=== PATIENT | female | born 1975 | race Hispanic/Latino ===

== ENCOUNTER 2020-02-04 17:48 | Emergency (ER) | payer BC ==
[~2020-02-04] VITALS: Ht 157.5 cm; Wt 72.6 kg
[2020-02-04] MEDS ORDERED: VITAMIN D350 MCG PO (18:05)
[2020-02-04] MEDS ORDERED: CETIRIZINE HCL10 MG PO (18:05)
[2020-02-04] MEDS ORDERED: IBUPROFEN800 MG PO (18:06)
== END 2020-02-04 22:28 | disposition home or self-care (01) ==
LOC: ED 17:48
DX: R51 Headache (principal); Z79.899 Other long term (current) drug therapy
CPT/HCPCS: 62270; 70450; 82945; 84157; 85032; 89051; 99284-25; J1200; J2765; J7030

== ENCOUNTER 2021-02-26 18:27 | Emergency (ER) | payer OTHER, BC ==
[~2021-02-26] VITALS: Ht 157.5 cm; Wt 72.8 kg
[~2021-02-26 18:27] MED LIST: CETIRIZINE HCL10 MG PO; IBUPROFEN800 MG PO; VITAMIN D350 MCG PO
[2021-02-26] MEDS ORDERED: VALIUM10 MG PO (21:19)
== END 2021-02-26 21:36 | disposition home or self-care (01) ==
LOC: ED 18:27
DX: S39.012A Strain of muscle, fascia and tendon of lower back, initial encounter (principal); X50.0XXA Overexertion from strenuous movement or load, initial encounter; Y99.0 Civilian activity done for income or pay; Z79.899 Other long term (current) drug therapy
CPT/HCPCS: 96372; 99283; J1885; J2270; J3360

== ENCOUNTER 2022-04-26 05:45 | Day surgery (SDC) | payer BC ==
[~2022-04-26] VITALS: Ht 157.5 cm; Wt 71.8 kg
[~2022-04-26 05:45] MED LIST changes: +CINNAMON500 MG PO; +FISH OIL 1,0001 EAC6 PO; +TURMERIC500 M3 PO; +VALIUM10 MG PO; +VIT C-ROSE HIP500 MG PO
--- NOTE | 2022-04-26 06:56 | NUR ---
denies any needs. iv patent.
--- NOTE | 2022-04-26 07:58 | NUR ---
PT ALERT, SIG OTHER IN SUPPORT.PT SEEMS ANXIOUS, SAID SHE HAS HAD PREVIOUS EGD. LEGS RESTLESS, SLIGHT LANGUAGE BARRIER, GAVE ENCOURAGEMENT, SIG OTHER WILL REMAIN FOR DC. SHARED PTS' ANXIOUS MOVEMENTS WITH ALLEN SIERRA. SHE WILL FOLLOW UP WITH LETI MERCADO
--- NOTE | 2022-04-26 08:06 | NUR ---
04/26/22 0806 Dulce Garrison 0859-PT TO PACU IN SUPINE POSITION. EYES CLOSED DOES NOT RESPOND TO VERBAL OR TACTILE STIMULI. BREATHING EASY AND UNALBORED. SPO2 >95% ON 8 L O2 VIA SIMPLE MASK WITH ORAL AIRWAY IN PLACE. 0802-PT RESPONDS TO TACTILE STIMULI AND OPENS EYES. ORAL AIRWAY REMOVED. BREATHING EASY AND UNLABORED. SPO2 >95% ON 6 L O2 VIA SIMPLE MASK. 0806-PT HOB ELEVATED. PT ENCOURAGED TO TAKE DEEP BREATHS. RETURN DEMONSTRATION OBSERVED. PT OPENS EYES INTERMITTANTLY ON HER OWN. BREATHING EASY AND UNLABORED. SPO2 >95% ON 6 L O2 VIA SIMPLE MASK.
--- NOTE | 2022-04-26 08:48 | NUR ---
PT AMBULATED TO BATHROOM WITH MINIMAL ASSIST, SHE WAS ABLE TO VOID, PT AMBULATED BACK TO ROOM, WARM BLANKETS GIVEN, CALL LIGHT WITHIN REACH. AT BEDSIDE.
--- NOTE | 2022-04-27 06:45 | OR ---
[facility] [address], [place] [address] Signed DATE OF OPERATION: 04/26/2022 SURGEON: Tom Jiang MD PREOPERATIVE DIAGNOSES: 1. Midsternal esophageal dysphagia. 2. Laparoscopic Francesca fundoplication in August 2018. 3. Question diverticulum at GE junction on recent barium swallow. 4. History of mild Schatzki's ring status post dilation. 5. Remote history of Cornelius's esophagus. POSTOPERATIVE DIAGNOSES: 1. Tiny distal esophageal diverticulum above GE junction. 2. Short floppy intact Francesca fundoplication. 3. No visible Cornelius's esophagus. 4. Minimal distal gastritis. PROCEDURE: EGD with CLOtest and biopsies of the antrum, GE junction and dilation to 54-Russian with Tanzanian dilator. ESTIMATED BLOOD LOSS: None. INDICATIONS: Marifer is a 46-year-old female, who has extensive history starting as far back as 2000 regarding her esophagus and Francesca fundoplication in 2019. Please see my two previous office notes one on December 19, 2021, the other on January 31, 2022 for those significant details. She is now having some sense of midsternal esophageal dysphagia. We sent her for a barium swallow at [facility] in [place], [place]. There is no esophageal dysmotility, no mucosal abnormality and no filling defect. She has no obvious stenosis. She has a very small diverticulum right about the level of GE junction. She returns to the office and wanted to undergo repeat upper endoscopy with impaired dilation. I reviewed with her all her previous records as well as her recent studies. I gave her a pamphlet on upper endoscopy. She is very familiar with that test. There is risk including, but not limited to gas bloating, crampy abdominal pain, bleeding, perforation requiring surgery, and missed diagnosis. She had expressed understanding wished to proceed. In these situations with dilation, we always have monitored anesthesia care for airway control and protection. She had expressed understanding wished to proceed. Electronically Signed By: TOM JIANG MD 04/27/22 0645 PATIENT NAME: MARIFER TOMAS OPERATIVE REPORT DATE OF : 73 REPORT #: [id number] PHYSICIAN: TOM JIANG MD PCP: MOODY HAYES DO REPORT IS CONFIDENTIAL AND NOT TO BE RELEASED WITHOUT AUTHORIZATION [facility] [address] [place] [id number] Signed PROCEDURE NOTE: Marifer was taken into our endoscopy suite and placed in the supine semi-recumbent position. She was placed under general endotracheal tube anesthesia per our nurse demolition specialist. Her lips were well lubricated. The adult gastroscope was introduced and advanced down the esophagus under direct visualization of camera without difficulty. On our initial pass down the esophagus, we did not see the tiny diverticulum just above her GE junction. We passed through her GE junction and it was very unremarkable. There was no Cornelius's mucosa. There was a little or no disruption to the Z-line. We did not have any sense of a stricture. We passed through a very short floppy intact Francesca fundoplication into the stomach. In the distal stomach, she had very minimal erythema. We went out into the duodenum and found to be quite unremarkable. We can see the ampulla of Vater off the side. It looked quite healthy. Her pyloric channel was healthy. We went ahead and took a biopsy out of the antrum for pathologic review as well as CLOtest. Upon retroflexion of scope once again, we can see that she has an intact Francesca fundoplication. No evidence of any recurrent hiatal hernia. We withdrew the scope back up through the area of her fundoplication. The Z-line is about 38-39 cm from her incisors. Her Francesca fundoplication is 2 or 3 cm at most in length. Again, little or no disruption at the Z-line. No Cornelius's mucosa. On this occasion as we looked around just above her Z-line, she has a very tiny diverticulum off to the side. We took multiple pictures for photodocumentation. I can't imagine that is causing her any significant sense of dysphagia. We then went ahead and passed our wire out into the stomach and withdrew our scope. We used a well lubricated 54-Russian Tanzanian dilator and carefully and slowly pass the dilator over the wire all the way down through the GE junction without resistance. The wire and dilator had been withdrawn. We reintroduced our gastroscope and as we traveled down the esophagus, we saw no breaks whatsoever in the mucosa particularly around the area of fundoplication. The stomach was unremarkable once again. On her way back, we went and took a single biopsy right along the edge of the Z-line for pathologic review. Otherwise, the distal middle and upper esophagus were unremarkable. After this, the gas was suctioned out and the gastroscope removed. Marifer tolerated the procedure quite well. RECOMMENDATIONS: I will see Marifer back in my office in 7 to 14 days to review her results. If she still has a sense of dysphagia, she is going to need advanced testing to include esophageal manometry and 24-hour pH testing. Tom Jiang MD Electronically Signed By: TOM JIANG MD 04/27/22 0645 PATIENT NAME: MARIFER TOMAS OPERATIVE REPORT DATE OF : 73 REPORT #: [id number] PHYSICIAN: TOM JIANG MD PCP: MOODY HAYES DO REPORT IS CONFIDENTIAL AND NOT TO BE RELEASED WITHOUT AUTHORIZATION [address] [place], [place] [address] Signed ALB/MODL /[id number] cc: MD Moody Matias DO Copies: TOM JIANG MD, ARIAN DO ~ Electronically Signed By: TOM JIANG MD 04/27/22 0645 PATIENT NAME: MARIFER TOMAS OPERATIVE REPORT DATE OF : 73 REPORT #: [id number] PHYSICIAN: TOM JIANG MD PCP: MOODY HAYES DO REPORT IS CONFIDENTIAL AND NOT TO BE RELEASED WITHOUT AUTHORIZATION
--- NOTE | 2022-04-28 11:45 | PATH ---
[facility] [address] [place], [place] [address] Signed SPECIMEN(S): A ANTRUM/PYLORUS BIOPSY SPECIMEN(S): B GE JUNCTION BIOPSY SPECIMEN SOURCE: A. ANTRUM/PYLORUS BIOPSY B. GE JUNCTION BIOPSY CLINICAL HISTORY: History of esophageal dysphagia, history of Cornelius's esophagus. FINAL PATHOLOGIC DIAGNOSIS: A. Antrum / pylorus biopsy: - Benign gastric-type mucosa with focal slight chronic inflammation. - Negative for evidence with Helicobacter organisms on immunostained sections. B. Gastroesophageal junction biopsy: - Benign esophageal and gastric-type mucosa with focal slight chronic inflammation. - Negative for specialized intestinal metaplasia or dysplasia. JVR:sherie:C2NR MICROSCOPIC EXAMINATION: Histologic sections of all submitted blocks are examined by light microscopy. These findings, together with the gross examination, support the pathologic diagnosis. A Helicobacter pylori immunostain is performed with appropriate positive and negative controls on block (A1) and is negative for organisms. JVR:sherie GROSS DESCRIPTION: Two specimens are received in two containers, labeled "SG." A. The specimen, labeled "SG, antrum/pylorus biopsy," is received in formalin and consists of one guevara soft tissue fragment that measures 0.6 cm in greatest dimension. The specimen is entirely submitted in cassette (A1). B. The specimen, labeled "SG, GE junction biopsies," is received in formalin and consists of one guevara soft tissue fragment that measures 0.3 cm in greatest dimension. The specimen is entirely submitted in cassette (B1). VB (under the direct supervision of a pathologist) The Gross Description was prepared using a voice recognition system. The report was reviewed for accuracy; however, sound-alike word errors, addition and/or PATIENT NAME: GABRIELA TOMAS PATHOLOGY DATE OF : 73 REPORT #: [id number] PHYSICIAN: GHADAFarmstr PATHOLOGY PCP: THIAGO HAYES DO REPORT IS CONFIDENTIAL AND NOT TO BE RELEASED WITHOUT AUTHORIZATION [facility] [address] [place], [place] [address] Signed deletions may occur. If there is any question about this report, please contact Client Services. ADDITIONAL NOTES: Immunohistochemical and/or in situ hybridization studies were performed on this case with the appropriate positive controls that react as expected. This test was developed and its performance characteristics determined by [facility]. It has not been cleared or approved by the U.S. Food and Drug Administration. The FDA has determined that such clearance or approval is not necessary. This test is used for clinical purposes. It should not be regarded as investigational or for research. [facility] is certified under the Clinical Laboratory Improvement Amendments of 1988 (CLIA) as qualified to perform high complexity clinical laboratory testing. This assay has not been validated for specimens that have been decalcified. PERFORMING LABORATORY: The technical component was performed by [facility], [address] [place] [id number] (CLIA# [id number]). Professional interpretation was performed by [facility] - [facility], [address] [place] [id number] (CLIA#: [id number]). Diagnostician: Jesús Mosqueda MD Pathologist Electronically Signed 04/28/2022 Copies: ~ PATIENT NAME: GABRIELA TOMAS PATHOLOGY DATE OF : 73 REPORT #: [id number] PHYSICIAN: DAISHA TRAMMELL PCP: THIAGO HAYES DO REPORT IS CONFIDENTIAL AND NOT TO BE RELEASED WITHOUT AUTHORIZATION
== END 2022-04-26 09:20 | disposition home or self-care (01) ==
LOC: OPS 05:45 → DS 05:45 → OPS 07:30
PROVIDERS: ATTEND Colon & Rectal Surgery
PROC: 0D758ZZ Dilation of Esophagus, Via Natural or Artificial Opening Endoscopic (ICD-10-PCS; 2022-04-26)
PROC: 0DB68ZX Excision of Stomach, Via Natural or Artificial Opening Endoscopic, Diagnostic (ICD-10-PCS; principal; 2022-04-26 07:30)
DX: K22.5 Diverticulum of esophagus, acquired (principal); R13.10 Dysphagia, unspecified; K29.70 Gastritis, unspecified, without bleeding
CPT/HCPCS: 36415; 87077; J0330; J1100; J1885; J2405; J2704; J7121

== ENCOUNTER 2023-09-05 15:57 | Inpatient (IN) | payer BC ==
[~2023-09-05] VITALS: Ht 157.5 cm; Wt 72.1 kg
[~2023-09-05 15:57] MED LIST changes: +OLMESARTAN MEDOX5 MG PO
[2023-09-05 17:53] LABS: BASOPHILS 0.3 % (0-2); HEMATOCRIT 39.7 % (35.0-50.0); HEMOGLOBIN 13.8 g/dL (12.0-18.0); LYMPHOCYTES 13.8 % (24-44); MCH 31.2 (27-36); MCHC 34.7 g/dl (30-36); MCV 89.8 fl (81-99); NEUTROPHILS 78.9 % (39-80); PLATELET COUNT 252 K/uL (140-440); RBC 4.42 M/ul (4.3-5.7); RDW 13.1 (10.5-15.0)
[2023-09-05 17:55] LABS: BILIRUBIN, URINE NEGATIVE (negative); BLOOD/HGB, URINE NEGATIVE (Negative); KETONE, URINE NEGATIVE (Negative); LEUK ESTERASE, URINE NEGATIVE (negative); NITRITE, URINE NEGATIVE (negative); PH, URINE 7.5 (5-7)
[2023-09-05 18:08] LABS: ALBUMIN 3.9 g/dL (3.4-5.0); ANION GAP 11.5 (7-21); BILIRUBIN, TOTAL 0.6 ng/dL (0.2-1.0); BUN/CREATININE RATIO 22.47 (6.0-28.6); CALCIUM 8.4 mg/dL (8.5-10.1); CREATININE, SERUM 0.89 mg/dL (0.55-1.02); POTASSIUM 3.5 mmol/L (3.5-5.1); PROTEIN, TOTAL 7.8 g/dL (6.4-8.2)
[2023-09-05] MEDS ORDERED: KETOROLAC TROMETHAMINE 30 MG/ML VIAL IV ONE (18:45)
[2023-09-05] MEDS ORDERED: LACTATED RINGER'S 1,000 ML IV SCH ×2 (18:45→22:30)
[2023-09-05] MEDS ORDERED: CEFAZOLIN SODIUM 2 GM/20 ML SYR IV ONE ×2 (20:00→22:30)
[2023-09-05] MEDS ORDERED: FAMOTIDINE 20 MG/ 2 ML VIAL IV ONE (20:00)
[2023-09-05 20:36] VITALS: BP 173/79
[2023-09-05] MEDS ORDERED: DEXTROSE 5% - LACTATED RINGERS 1,000 ML IV SCH (20:45)
[2023-09-05] MEDS ORDERED: HYDROmorphone HCL 1 MG/ML SYR IV PRN (20:45)
[2023-09-05] MEDS ORDERED: ondansetron HCL 4 MG/2 ML VIAL IV PRN ×2 (20:45→22:30)
[2023-09-05] MEDS ORDERED: OXYBUTYNIN CHLOR5 M1 PO (20:47)
--- NOTE | 2023-09-05 21:00 | NUR ---
PT ADMITTED TO ROOM 115 @ 2035 FROM ED. A/O, SELF TRANSFERED FROM STRETCHER AND WENT DIRECTLY TO BATHROOM. BACK TO BED, RA, BOYFRIEND ACCOMPAINED PT TO ROOM. PARTICIPATED IN THE ADMISSION PROCESS. STATES SHE HAS URINARY URGENCY, TAKES A PRN MEDICATION FOR THIS.
[2023-09-05] MEDS ORDERED: HEParin SOD (PORCINE) 5,000 UNIT/0.5 ML SYR SUB-Q SCH (22:20)
[2023-09-05] MEDS ORDERED: LACTATED RINGER'S 1,000 ML IV ONE (22:30)
[2023-09-05] MEDS ORDERED: oxyBUTYnin chloride 5 MG TAB PO PRN (22:30)
[2023-09-05] MEDS ORDERED: MORPHINE SULFATE 10 MG/ML VIAL IV PRN (22:30)
[2023-09-05] MEDS ORDERED: PROCHLORPERAZINE EDISYLATE 10 MG/2 ML VIAL IV PRN (22:30)
[2023-09-05] MEDS ORDERED: LOSARTAN POTASSIUM 50 MG TAB PO SCH (22:30)
--- NOTE | 2023-09-05 22:30 | NUR ---
DR MIDDLETON INTO SEE PT; GALLBLADDER BOOK GIVEN, CZECH, WELL A UPPER SORBIAN VERSION. PT GIVEN BROTH, JELLO; WATER. DOES NOT HAVE A TIME FOR SURGERY, EXPLAINED TO PT. PT STATES UNDERSTANDING. DENIES NEED FOR PAIN MEDICATIONS THIS TIME. HAS BEEN UP TO BATHROOM TO VOID, STEADY ON FEET.
[2023-09-05 22:48] VITALS: BP 151/84
--- NOTE | 2023-09-05 23:46 | NUR ---
PATIENT RESTING IN BED. SCHEDULED MEDICATION ADMINISTERED. ASSESSMENT COMPLETE. ABD TENDER UPON PALPATION, BUT DENIES PAIN. IV FLUSHED WNL. WATER REMOVED FROM BEDSIDE TABLE. PATIENT HAS NO FURTHER NEEDS. CALL LIGHT IN REACH.
[2023-09-06] VITALS (9 sets, daily range): BP systolic 129–145; BP diastolic 68–771
--- NOTE | 2023-09-06 01:13 | NUR ---
PATIENT RESTING IN BED. VS AND I&Os OBTAINED AND RECORDED. NEW BAG IV FLUID INFUSING PER ORDER. PATIENT HAS NO FURTHER NEEDS. CALL LIGHT IN REACH.
--- NOTE | 2023-09-06 02:05 | NUR ---
PATIENT RESTING IN BED WITH EYES CLOSED. RESPIRATIONS EVEN AND UNLABORED. CALL LIGHT IN REACH.
[2023-09-06] MEDS ORDERED: KETOROLAC TROMETHAMINE 30 MG/ML VIAL IV PRN (03:15)
[2023-09-06] MEDS ORDERED: CEFAZOLIN SODIUM 2 GM/20 ML SYR IV SCH ×2 (04:00→06:00)
--- NOTE | 2023-09-06 04:19 | NUR ---
PATIENT RESTING IN BED WITH EYES CLOSED. SCHEDULED ABX INFUSING PER ORDER. CALL LIGHT IN REACH.
[2023-09-06 05:36] LABS: BASOPHILS 0.8 % (0-2); EOSINOPHILS 2.8 % (0-6); HEMATOCRIT 37.8 % (35.0-50.0); HEMOGLOBIN 12.8 g/dL (12.0-18.0); LYMPHOCYTES 34.9 % (24-44); MCH 30.6 (27-36); MCV 90.1 fl (81-99); MONOCYTES 8.9 % (0-12); NEUTROPHILS 52.6 % (39-80); PLATELET COUNT 234 K/uL (140-440); RBC 4.19 M/ul (4.3-5.7); RDW 13.3 (10.5-15.0)
[2023-09-06] MEDS ORDERED: FAMOTIDINE 20 MG/ 2 ML VIAL IV SCH ×2 (06:00→09:00)
[2023-09-06] MEDS ORDERED: HEParin SOD (PORCINE) 5,000 UNIT/0.5 ML SYR SUB-Q SCH (06:00)
[2023-09-06 06:09] LABS: ALBUMIN 3.2 g/dL (3.4-5.0); ALBUMIN/GLOBULIN RATIO 0.89 (1.1-2.4); ANION GAP 11.6 (7-21); BILIRUBIN, TOTAL 0.8 ng/dL (0.2-1.0); BUN/CREATININE RATIO 15.38 (6.0-28.6); CALCIUM 8.1 mg/dL (8.5-10.1); CREATININE, SERUM 0.65 mg/dL (0.55-1.02); POTASSIUM 3.6 mmol/L (3.5-5.1); PROTEIN, TOTAL 6.8 g/dL (6.4-8.2)
--- NOTE | 2023-09-06 06:14 | NUR ---
PATIENT RESTING IN BED. AWAKENS EASILY. VS AND I&Os OBTAINED AND RECORDED. PRE-SURGERY WIPE DOWN COMPLETE. NEW GOWN AND LINENS PROVIDED. ASSESSMENT COMPLETE. PATIENT DENIES PAIN. ABD TENDER UPON PALPATION. PATIENT HAS NO FURTHER NEEDS. CALL LIGHT IN REACH.
--- NOTE | 2023-09-06 07:11 | NUR ---
GOT REPORT FROM MANUFACTURING MAINTENANCE TECHNICIAN NURSE.
--- NOTE | 2023-09-06 08:05 | NUR ---
Provided Pt with extra pillow. Call light left in reach. No other needs expressed by Pt.
[2023-09-06] MEDS ORDERED: LIDOCAINE HCL 1% 30 ML SDV ONE (08:23)
[2023-09-06] MEDS ORDERED: ROCURONIUM BROMIDE 50 MG/5 ML SYR ONE (08:23)
[2023-09-06] MEDS ORDERED: propofoL 200 MG/20 ML VIAL ONE (08:23)
[2023-09-06] MEDS ORDERED: KETOROLAC TROMETHAMINE 30 MG/ML VIAL ONE (08:26)
[2023-09-06] MEDS ORDERED: ondansetron HCL 4 MG/2 ML VIAL ONE (08:26)
[2023-09-06] MEDS ORDERED: dexmedeTOMIDine HCl 200 MCG/2 ML VIAL ONE (08:26)
[2023-09-06] MEDS ORDERED: DEXAMETHASONE SOD PHOS 4 MG/ML VIAL ONE (08:26)
[2023-09-06] MEDS ORDERED: KETAMINE in NS 50 MG/5 ML SYR ONE (08:37)
--- NOTE | 2023-09-06 08:48 | NUR ---
INTO GIVE PATIENT MORNING MEDICATIONS. PATIENT IS READY FOR SURGERY AND SURGERY IS HERE TO GET PATIENT. PATIENT HAS SO AT BEDSIDE THAT IS GOING DOWN TO SURGERY WITH HER. LR HANGING, IV FLUSHED. PATIENT HAD SMALL SIP OF WATER WITH MORNING MEDICATION. PATIENT HAS SCDS ON. DENIES PAIN AT THIS TIME.
[2023-09-06] MEDS ORDERED: ACETAMINOPHEN 1,000 MG/100 ML VIAL ONE (09:01)
[2023-09-06] MEDS ORDERED: iopamidoL 30 ML VIAL ONE ×2 (09:04→10:25)
[2023-09-06] MEDS ORDERED: SODIUM CHLORIDE 0.9% 40 ML IV ONE (09:06)
[2023-09-06] MEDS ORDERED: SUGAMMADEX SODIUM 200 MG/2 ML ML ONE (09:07)
[2023-09-06] MEDS ORDERED: ESTRADIOL42.5 GM PV (09:07)
[2023-09-06] MEDS ORDERED: FLUTICASONE PRO16 GM NAS (09:07)
[2023-09-06] MEDS ORDERED: VENTOLIN HFA18 GM INH (09:08)
[2023-09-06] MEDS ORDERED: SODIUM CHLORIDE 0.9% 20 ML IV ONE (09:14)
[2023-09-06] MEDS ORDERED: CEFAZOLIN SOD 1,000 MG/10 ML VIAL ONE (09:14)
[2023-09-06] MEDS ORDERED: ePHEDrine sulfate 50 MG/ML AMP ONE (09:40)
[2023-09-06] MEDS ORDERED: HYDROmorphone HCL 1 MG/ML SYR IV PRN (10:00)
[2023-09-06] MEDS ORDERED: ondansetron HCL 4 MG/2 ML VIAL IV PRN (10:00)
[2023-09-06] MEDS ORDERED: NALOXONE HCL 0.4 MG SYR IV PRN (10:00)
[2023-09-06] MEDS ORDERED: fentaNYL citrate 50 MCG/ML SDV IV PRN (10:00)
[2023-09-06] MEDS ORDERED: IBLOOD GLUCOSE TEST STRIP 1 EA TEST VI PRN (10:00)
--- NOTE | 2023-09-06 10:56 | NUR ---
ATTEMPTED VISIT DURING SPIRITUAL CARE ROUNDS. PT GONE FROM ROOM. PROVIDED PRAYER. WILL ATTEMPT LATER VISIT CIRCUMSTANCES ALLOW.
--- NOTE | 2023-09-06 11:55 | NUR ---
09/06/23 1155 Katerina De Dios 1146-PATIENT ARRIVED TO PACU ON 6L MASK NONAROUSABLE ORAL AIRWAY IN PLACE. RR EVEN. SR. HR 60'S IVF INFUSING. 3 LAP SITES TO ABDOMEN INTACT. KATH DRAIN SEROUSANGUINOUS DRAINAGE. GAUZE TO KATH DRAIN HAS SOME DRAINAGE. 1155-PATIENT REMAINS NONAROUSABLE 6L MASK RR EVEN HR 70'S.
[2023-09-06] MEDS ORDERED: OXYCODONE/APAP 7.5/325 TAB PO PRN (12:30)
[2023-09-06] MEDS ORDERED: ACETAMINOPHEN 500 MG TAB PO PRN (12:30)
[2023-09-06] MEDS ORDERED: IBUPROFEN 600 MG TAB PO PRN (12:30)
--- NOTE | 2023-09-06 12:37 | NUR ---
PATIENT BACK TO THE ROOM FROM SURGERY. PATIENT ON RA. PATIENT IS STILL DROWSY. PATIENT ON THE BEDPAN SHE FEELS SHE HAS TO URINATE. VITALS DONE.
--- NOTE | 2023-09-06 14:14 | NUR ---
PT RESTING IN BED WITH AT BEDSIDE. KATH DRAIN INTACT DRAINING SANGUANOUS FLUID AND DRSG AROUND DRAIN SITE WITH SM AMT OF SANGUANOUS DRAINAGE. LAP SITES WITH STERI STRIPS INTACT WITH SCANT AMT OF SANGUANOUS DRAINAGE. PT IS ALERT AND AWAKE WITH RESPIRATIONS EVEN AND UNLABORED. RATES ABD PAIN 4/10, MEDICATION GIVEN ORDERED. WILL CONTINUE TO MONITOR.
[2023-09-06] MEDS ORDERED: MAGOX 400400 MG PO (14:21)
[2023-09-06] MEDS ORDERED: VITAMIN K240 MCG PO (14:21)
[2023-09-06] MEDS ORDERED: PROBIOTIC1 EAC1 PO (14:22)
[2023-09-06] MEDS ORDERED: ZINC50 MG PO (14:22)
--- NOTE | 2023-09-06 14:23 | NUR ---
MED REC COMPLETE
--- NOTE | 2023-09-06 14:53 | NUR ---
DR MIDDLETON IN TO SEE PT AND DISCUSS PLAN OF CARE.
--- NOTE | 2023-09-06 18:13 | NUR ---
PT RESTING IN BED WITH AT BEDSIDE, CALL LIGHT WITHIN REACH. STATES PAIN TO ABD IS TOLERABLE AT A 2 CURRENTLY.
--- NOTE | 2023-09-06 18:33 | NUR ---
PT UP AMBULAING TO RESTROOM TO VOID AND IN THE HALLS WITH SBA. PT TOLERATED WELL. PT BACK IN BED WITH CALL LIGHT WITHIN REACH.
--- NOTE | 2023-09-06 18:54 | NUR ---
PATIENT IN BED AT THIS TIME. VITALS AND I&O'S CHARTED. CALL LIGHT WITHIN REACH, NO FURTHER NEEDS AT THIS TIME.
--- NOTE | 2023-09-06 20:07 | NUR ---
REPORT RECIEVED FROM DAY SHIFT RN. PATIENT RESTING IN BED REQUESTING PRN PAIN MEDICAITON . PRN PAIN MEDICATION AND SCHEDULED MEDCATION ADMINISTERED. NO FURTHER NEEDS. CALL LIGHT IN REACH.
--- NOTE | 2023-09-06 20:50 | NUR ---
SURVEY RESEARCH TEACHER ENTERED ROOM AND TOOK VITALS. NO I AND O NOTED. PT STATED NO FUTHER NEEDS AT THIS TIME. CALL LIGHT PLACED WITHIN REACH.
--- NOTE | 2023-09-06 22:45 | NUR ---
PATIENT RESTING IN BED. PATIENT ASSISTED TO URINATE INTO BED ANDREWS, PER PATIENT REQUEST. ASSESSMENT COMPLETE. PATIENT DENIES PAIN. ABD TENDER UPON PALPATION. PATIENT REPORTS NO FURTHER NEEDS. SCDs IN PLACE. CALL LIGHT IN REACH.
[2023-09-07] VITALS (7 sets, daily range): BP systolic 128–146; BP diastolic 66–86
--- NOTE | 2023-09-07 00:30 | NUR ---
PATIENT RESTING IN BED WITH EYES CLOSED. RESPIRATIONS EVEN AND UNLABORED. CALL LIGHT IN REACH. SCDs IN PLACE.
--- NOTE | 2023-09-07 02:18 | NUR ---
PT CALLED, CPOX ALARMING, 02 98, HR 67; CHANGED SPD ALERT. RESP REG AND UNLABORED.
--- NOTE | 2023-09-07 04:01 | NUR ---
PATIENT RESTING IN BED. SCHEDULED ABX INFUSING PER ORDER. CALL LIGHT IN REACH.
--- NOTE | 2023-09-07 04:30 | NUR ---
CYTOGENETICIST ENTERED ROOM AND TOOK VITALS AND RECORDED I AND O. PT STATED THE NEED TO USE THE RESTROOM. CYTOGENETICIST ASSISTED PT RESTROOM AND BACK TO BED WHEN FINISIHED. PT REQUESTED TO TAKE A WALK. CYTOGENETICIST CONFIRMED LEFT TO CONFIRM WITH RN.
--- NOTE | 2023-09-07 05:06 | NUR ---
CAPACITOR ASSEMBLER ASSISTED PT WITH WALK AROUND UNIT. PT AMBULATED 2 LAPS AROUND UNIT. TOLERATED WELL. PT WAS ASSITED BACK TO BED. CAPACITOR ASSEMBLER GOT PT A JELLO REQUESTED BY PT. SCDS PLACED BACK ON PT LEGS. PT ASKED ABOUT PAIN MEDS. RN NOTIFIED. PT STATES NO FURTHER NEEDS AT THIS TIME. CALL LIGHT PLACED WITHIN REACH.
--- NOTE | 2023-09-07 05:06 | NUR ---
PATIENT REPORTS 3/10 ABD PAIN. PRN PAIN MEDICATION ADMINISTERED PER PATIENT REQUEST. ASSESSMENT COMPLETE. ABD TENDER UPON PALPATION. LAP SITES C/D/I WITH MINIMAL DRY DRAINAGE. NO FURTHER NEEDS. CALL LIGHT IN REACH.
--- NOTE | 2023-09-07 06:00 | NUR ---
CALL LIGHT ANSWERED. PT NEEDED TO USE BATHROOM. WINDING DEPARTMENT SUPERVISOR ASSISTED PT TO BATHROOM. CALL LIGHT WITHIN REACH AND TOLD PT TO CALL WHEN FINSIHED. ONCE FINISHED PT BRUSHED TEETH. WINDING DEPARTMENT SUPERVISOR ASSITED PT TO SIT ON BED AND DNA EPTIED KATH DRAIN. PT EXPRESSED THE WANT TO WALK SOME LAPS AROUND UNIT. PT CURRENTLY WALKING LAPS AND TOLERATING WELL.
--- NOTE | 2023-09-07 07:45 | NUR ---
PT ALERT AND AWAKE, NO REQUESTS AT THIS TIME. CALL LIGHT WITHIN REACH.
[2023-09-07 08:07] LABS: BASOPHILS 0.7 % (0-2); EOSINOPHILS 2.8 % (0-6); HEMATOCRIT 36.7 % (35.0-50.0); HEMOGLOBIN 12.5 g/dL (12.0-18.0); LYMPHOCYTES 11.9 % (24-44); MCH 30.7 (27-36); MCHC 34.1 g/dl (30-36); MCV 90.3 fl (81-99); MONOCYTES 4.5 % (0-12); NEUTROPHILS 80.1 % (39-80); PLATELET COUNT 215 K/uL (140-440); RBC 4.07 M/ul (4.3-5.7); RDW 13.1 (10.5-15.0)
[2023-09-07 08:22] LABS: ALBUMIN 3.1 g/dL (3.4-5.0); ALBUMIN/GLOBULIN RATIO 0.86 (1.1-2.4); ANION GAP 12.6 (7-21); BILIRUBIN, TOTAL 0.4 ng/dL (0.2-1.0); BUN/CREATININE RATIO 14.86 (6.0-28.6); CALCIUM 7.9 mg/dL (8.5-10.1); CREATININE, SERUM 0.74 mg/dL (0.55-1.02); POTASSIUM 3.6 mmol/L (3.5-5.1); PROTEIN, TOTAL 6.7 g/dL (6.4-8.2)
[2023-09-07] MEDS ORDERED: FAMOTIDINE 20 MG TAB PO SCH (09:00)
--- NOTE | 2023-09-07 09:15 | NUR ---
INSIDE WIREMAN ASSISTED PT TO THE BR AND TO AMBULATE A FEW LAPS IN HER ROOM. PT STATES NO COMAPLINTS CALL LIGHT IS WITHIN REACH
--- NOTE | 2023-09-07 09:35 | NUR ---
ASSESSMENT COMPLETE. NO REQUESTS AT THIS TIME. INSTRUCTED PT IN USING INCENTIVE SPIROMETER AND ON THE IMPORTANCE. PT STATES UNDERSTANDING AND WILLINGNESS.
--- NOTE | 2023-09-07 10:23 | NUR ---
ATTEMPTED TO VISIT DURING SPIRITUAL CARE ROUNDS. PT APPEARED TO BE SLEEPING. DID NOT DISTURB. PROVIDED PRAYER.
--- NOTE | 2023-09-07 11:39 | NUR ---
PT HAS BEEN UP AMBULATING IN HER ROOM, TOLERATING WELL. CALL LIGHT WITHIN REACH. PT STATES PAIN IS AT TOLERABLE LEVEL AT THIS TIME.
--- NOTE | 2023-09-07 13:24 | NUR ---
pt resting in bed, just finished lunch, pt tolerated well. pt c/o pain to abd 3/10, acetaminophen given per order. will continue to monitor.
--- NOTE | 2023-09-07 14:28 | NUR ---
PT C/O ABD PAIN 07/21, MOTRIN GIVEN PER ORDER. WILL CONTINUE TO MONITOR. PT UP AMBULATING IN ROOM.
--- NOTE | 2023-09-07 15:30 | NUR ---
PT UP AMBULATING IN THE BATISTA, TOLERATED WELL.
--- NOTE | 2023-09-07 15:49 | NUR ---
IV SALINE LOCKED PER ORDER, PT TOLERATING PO INTAKE WELL.
--- NOTE | 2023-09-07 16:45 | NUR ---
PT ASLEEP WITH RESPIRATIONS EVEN AND UNLABORED, CALL LIGHT WITHIN REACH.
--- NOTE | 2023-09-07 17:34 | NUR ---
pt in bed with call light within reach, no requests at this time.
--- NOTE | 2023-09-07 18:00 | NUR ---
PT SITTING UP IN BED EATING DINNER, TOLERAING WELL.
--- NOTE | 2023-09-07 19:34 | NUR ---
RECEIVED REPORT FROM DAY SHIFT RN. PATIENT IS UP IN RECLINER. PATIENT DENIES ANY NEEDS. CALL LIGHT IN REACH.
[2023-09-07] MEDS ORDERED: MAGNESIUM HYDROXIDE 30 ML UDC PO ONE (20:00)
--- NOTE | 2023-09-07 20:46 | NUR ---
FIRE SPRINKLER FITTER ENTERED ROOM AND TOOK VITALS. I AND O RECORDED. PT STATES NO PAIN. RN NOTIFIED. NO FURTHER NEEDS AT THIS TIME. CALL LIGHT WITHIN REACH.
--- NOTE | 2023-09-07 21:01 | NUR ---
PATIENTS VITALS TAKEN AND RECORDED. INTAKE AND OUTPUT RECORDED. PATIENTS KATH NOTED TO HAVE NO OUTPUT. PATIENT DENIES ANY PAIN OR NAUSEA. PATIENTS PM MEDS GIVEN PER ORDER. PATIENTS IV FLUSHED AND SL PER ORDER. PATIENT DENIES ANY FURTHER NEEDS. CALL LIGHT IN REACH.
--- NOTE | 2023-09-07 22:14 | NUR ---
PATIENT IS RESTING IN BED WITH EYES CLOSED, RR 15. CALL LIGHT IN REACH.
--- NOTE | 2023-09-07 23:59 | NUR ---
PATIENT IS RESTING IN BED WITH EYES CLOSED, RR 17. CALL LIGHT IN REACH.
--- NOTE | 2023-09-08 00:56 | NUR ---
GOT REPORT FROM IMPROVEMENT SPECIALIST NURSE. PATIENT CURRENTLY LAYING ON BACK, REGULAR RESPIRATIONS NOTED. PATIENT OPENED EYES WHEN THIS NURSE OPENED THE DOOR. DENIES ANY CARES AT THIS TIME.
--- NOTE | 2023-09-08 04:31 | NUR ---
PATIENT SLEEPING, REGULAR RESPIRATIONS NOTED. PATIENT STAYED ASLEEP WHEN THIS NURSE WAS INTO CHECK ON HER.
[2023-09-08 06:10] LABS: ALBUMIN 3.2 g/dL (3.4-5.0); ALBUMIN/GLOBULIN RATIO 0.8 (1.1-2.4); ANION GAP 12.9 (7-21); BILIRUBIN, TOTAL 0.4 ng/dL (0.2-1.0); BUN/CREATININE RATIO 14.28 (6.0-28.6); CALCIUM 8.3 mg/dL (8.5-10.1); CREATININE, SERUM 0.63 mg/dL (0.55-1.02); POTASSIUM 3.9 mmol/L (3.5-5.1); PROTEIN, TOTAL 7.2 g/dL (6.4-8.2)
[2023-09-08 06:33] VITALS: BP 159/97
--- NOTE | 2023-09-08 06:43 | NUR ---
INTO DO PATIENTS VITALS. PATIENT WOULD LIKE SOMETHING FOR PAIN AND NAUSEA. SEE EMAR. PATIENT DENIES ANY OTHER CARES AT THIS TIME.
[2023-09-08] MEDS ORDERED: IBUPROFEN600 MG PO (07:30)
[2023-09-08] MEDS ORDERED: ACETAMINOPHEN500 MG PO (07:30)
[2023-09-08] MEDS ORDERED: OXYCODON-ACETA1 EAC2 PO (07:30)
[2023-09-08] MEDS ORDERED: MAGNESIUM HYDROXIDE 30 ML UDC PO ONE (07:45)
--- NOTE | 2023-09-08 08:28 | HP ---
[facility] [address], [place] [address] Signed ADMISSION DATE: 09/05/2023 REASON FOR ADMISSION: Acute calculous cholecystitis. HISTORY OF PRESENT ILLNESS: This 48-year-old woman who speaks Botswanan quite well and lives in [place], [place] with her significant other. She has six grown children. 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 Her primary care provider locally is Dr. Moody Hayes. She presented to the emergency room today and was evaluated thoroughly by Dr. Panfilo Munson with complaints of right upper abdominal pain worse on eating and extending and radiation to the subscapular area. She has had nausea, but no vomiting. She has had episodic similar symptoms for the past year, which lasts for about an hour. Both mother and sister have had cholecystectomy. Evaluation in the emergency room under the direction of Dr. Munson included, in addition to clinical examination, a gallbladder ultrasound which showed gallstones and borderline gallbladder wall thickening. She had local tenderness. Her liver enzymes were elevated, though bilirubin was normal. Her alkaline phosphatase was 144, ALT 228, and AST 341, total bilirubin 0.6. PAST MEDICAL HISTORY: Notable for anti-reflux operation performed in [place], [place] upon referral of Dr. Hayes in 2019. Additionally, she has had tubal ligation, has had hysterectomy requiring reoperation for a cuff disruption also in [place]. This was back in April. She does not smoke nor does she use alcohol. She is postmenopausal for several years. She does have underlying hypertension and what sounds like "overactive bladder." CURRENT MEDICATIONS: At time of admission include olmesartan 10 mg daily, oxybutynin 5 mg p.o. p.r.n. for bladder spasm, vitamin C, cetirizine, cholecalciferol, vitamin D3, and tumeric root extract. REVIEW OF SYSTEMS: She denies any shortness of breath or chest pain. She has had no dysphagia or dysuria. Denies any hematemesis or blood per rectum. PHYSICAL EXAMINATION: GENERAL: A pleasant woman who speaks Botswanan quite well. There is no language Electronically Signed By: JESS MIDDLETON MD 09/08/23 0828 PATIENT NAME: GABRIELA TOMAS HISTORY AND PHYSICAL DATE OF : 73 REPORT #: [id number] PHYSICIAN: JESS MIDDLETON MD PCP: MOODY HAYES DO REPORT IS CONFIDENTIAL AND NOT TO BE RELEASED WITHOUT AUTHORIZATION [facility] [address], [place] [address] Signed barrier at all. VITAL SIGNS: Currently show temperature of 97.2, pulse 62, blood pressure 173/79, O2 saturation 98% on room air. NECK: Trachea is midline. Mucous membranes are dry. CHEST: Clear. HEART: Regular without murmur. ABDOMEN: Obese, but soft. There is tenderness in the right subcostal area, but no mass. She has no ascites. EXTREMITIES: Show no clubbing, cyanosis, or edema. LABORATORY STUDIES: Show white count of 9.9, hematocrit 39.7, platelets 252,000. Chem profile normal except for glucose of 153, AST 341, ALT 228, alkaline phosphatase 144, total bilirubin 0.6, lipase normal at 33. Urinalysis is normal. The ultrasound was reviewed as was the report confirming gallstones within the gallbladder. No sign of intrahepatic or extrahepatic ductal dilatation with normal right kidney and what appears to be significant dysmorphic calcifications within somewhat thickened gallbladder wall, though not fully distended. ASSESSMENT: The patient has acute calculous cholecystitis. She has been admitted for IV fluid resuscitation, IV antibiotics and the further management. I discussed with her in detail using the white board in the presence of nurse (Danika), the pathophysiology of biliary disease and recommendation of treatment to include cholecystectomy preferred by laparoscopic approach. The risk of bleeding, infection, bile duct injury, need for open procedure, need for other indicated procedures were discussed in detail. She may require a common duct exploration, either laparoscopic or open, or required delayed treatment of such a finding. She understands this pathophysiology, the operative recommendation and the complications that are attendant to it on a rare occasion. Understanding that she wished to proceed. PLAN: We will continue fluid resuscitation, IV antibiotics, parental pain medication, DVT prophylaxis, anticipating operation tomorrow. The gallbladder manual will be given to the patient as well in both Lebanese and Botswanan. Jess Middleton MD Electronically Signed By: JESS MIDDLETON MD 09/08/23 0828 PATIENT NAME: GABRIELA TOMAS HISTORY AND PHYSICAL DATE OF : [birth year] REPORT #: [id number] PHYSICIAN: JESS MIDDLETON MD PCP: MOODY HAYES DO REPORT IS CONFIDENTIAL AND NOT TO BE RELEASED WITHOUT AUTHORIZATION [address] [address] Signed /[facility]ANT[facility] /[id number] cc: MD Moody Carrasquillo DO Copies: PANFILO MUNSON MD, ARIAN DO ~ Electronically Signed By: JESS MIDDLETON MD 09/08/23 0828 PATIENT NAME: GABRIELA TOMAS HISTORY AND PHYSICAL DATE OF : 73 REPORT #: [id number] PHYSICIAN: JESS MIDDLETON MD PCP: MOODY HAYES DO REPORT IS CONFIDENTIAL AND NOT TO BE RELEASED WITHOUT AUTHORIZATION
--- NOTE | 2023-09-08 08:28 | OR ---
[facility] [address] [place] [place], [place] [address] Signed DATE OF OPERATION: 09/06/2023 SURGEON: Jess Middleton MD PREOPERATIVE DIAGNOSES: 1. Acute calculous cholecystitis. 2. Obesity. POSTOPERATIVE DIAGNOSES: 1. Acute calculous cholecystitis with choledocholithiasis and obstruction. 2. Obesity. PROCEDURES: 1. Laparoscopic cholecystectomy with laparoscopic common duct exploration (prolonged, complicated, difficult. 2. Flexible choledochoscopy with clearance of common bile duct and visualization of the duodenal mucosa. 3. Surgeon directed fluoroscopy. ANESTHESIA: General endotracheal, Marleni Shawn, STEAMB[employer]ER and local 10 mL of 0.25% Marcaine with epinephrine. INDICATION: This 48-year-old woman lives in [place], [place]. She is a patient of Dr. Moody Hayes. She presented yesterday with symptoms typical of acute cholecystitis including right subcostal pain and tenderness. The gallbladder ultrasound showed multiple gallstones of the gallbladder. She did not have intra or extrahepatic ductal dilatation, but did have elevated liver enzymes, though the bilirubin was normal. She has been fluid resuscitated, given intravenous antibiotics, parenteral pain medication and so forth and is now to undergo cholecystectomy preferred by a laparoscopic approach and other indicated procedures as necessary including possible common duct exploration. She understands the risk of bleeding, infection, bile duct injury, need for open procedure and need for additional procedures not undertaken today. She wishes to proceed. FINDINGS: The gallbladder was markedly inflamed and the infundibulum and cystic duct were rather dilated. Initial cholangiogram confirmed an obstructing stone or impediment to flow in the proximal common bile duct just distal to the cystic duct entry. This necessitated a Electronically Signed By: JESS MIDDLETON MD 09/08/23 0828 PATIENT NAME: GABRIELA TOMAS OPERATIVE REPORT DATE OF : [birth year] REPORT #: [id number] PHYSICIAN: JESS MIDDLETON MD PCP: MOODY HAYES DO REPORT IS CONFIDENTIAL AND NOT TO BE RELEASED WITHOUT AUTHORIZATION [facility] [address] [place], [place] [address] Signed common duct exploration by a transcystic approach. This consisted of ampullary dilation, cystic duct dilation, extraction of material from the common duct and completion cholangiogram. At conclusion, there was minimal residual bilious debris, but no formed stones and good flow into the duodenum. The duodenal mucosa was visualized with the choledochoscope confirming wide passage through the common duct itself. DESCRIPTION OF PROCEDURE: The patient was brought to the operating room, given a general endotracheal anesthetic. Preoperative antibiotic Ancef had been given. Sequential compression device stockings were used and heparin subcutaneously administered. The abdomen was prepared with a chlorhexidine solution and draped sterilely. An infraumbilical incision was made and using an open Alana cannula technique pneumoperitoneum was achieved to a level of 14 mmHg of carbon dioxide gas. Intra-abdominal inspection showed no sign of ascites or carcinomatosis. The liver was not particularly fatty infiltrated. The gallbladder was chronically inflamed, but had no associated adhesions with it. A very fatty peritoneum was covering the gallbladder. Three additional trocars were placed in their usual configuration in the subxiphoid, right midclavicular, and right anterior axillary line. Gallbladder was elevated cephalad and retracted laterally and using blunt and electrocautery dissection, the infundibulum was dissected free. It was ultimately noted that the cystic duct was quite dilated. Once the cystic duct was more fully isolated, a clip was applied across gallbladder cystic duct junction and a transverse choledochotomy made in the cystic duct. Milking of the cystic duct showed thick tenacious yellowish mucoid sludgelike material. Cholangiogram was performed with surgeon directed fluoroscopy showing contrast into the biliary tree with prompt cut off in the proximal common bile duct by what appeared to be a sizable stone. On that basis, a common duct exploration was deemed advisable. An additional 5 mm taut trocar was placed in alignment with the cystic duct. Under fluoroscopic control, a flexible wire was passed down the cystic duct into the common bile duct that easily passed into the duodenum itself. The defect could be identified more distally in the duct at that point. An ERCP balloon catheter was then passed over the wire, positioned across the ampulla and dilated under fluoroscopic control. The balloon was deflated and withdrawn to the cystic duct common duct junction and once again dilated. Under direct visualization, the balloon dilator was withdrawn to the cystic duct proper and dilated once again to allow for accommodation of flexible choledochoscope. The flexible ureteral nephroscope was then obtained and carefully passed through the taut trocar and manipulated into the cystic duct. Irrigation of saline was running during the course of and passage into the common bile duct showed mucoid Electronically Signed By: JESS MIDDLETON MD 09/08/23 0828 PATIENT NAME: GABRIELA TOMAS OPERATIVE REPORT DATE OF : 73 REPORT #: [id number] PHYSICIAN: JESS MIDDLETON MD PCP: MOODY HAYES DO REPORT IS CONFIDENTIAL AND NOT TO BE RELEASED WITHOUT AUTHORIZATION [address] [address] Signed tenacious bilious thickened bile material. This was irrigated and manipulated. A basket was used to grab some of that mucoid material but also a small stone. This allowed for withdrawal of the mucoid material and small bits of stone. The scope was once again reintroduced and passed distally, ultimately passed into the duodenum itself. Duodenal villous structures were quite clearly identified. Careful withdrawal of the flexible choledochoscope through the biliary tree showed some minimal mucoid material that was retained, but no firm stones or anything of that sort. Plans were then made for completion cholangiogram. Once again using the Zeng type cholangiocatheter, cholangiography was undertaken showing contrast flowing into the biliary tree with prompt emptying into the duodenum. There was some filling defect in the gonzalez of the common bile duct as would be expected from some retained mucoid material, but this will not cause an obstruction. The catheter removed. The cystic duct was doubly clipped and subsequently secured with a PDS endo-loop. The gallbladder was then dissected free in a retrograde fashion using electrocautery. The gallbladder is placed in an endobag and extracted through the infraumbilical port site. Hemostasis of the liver bed was assured with clips as necessary. The gallbladder was opened on the back table and found to have multiple large multifaceted firm yellow gallstones. The mucosa showed no sign of malignancy. Irrigation was undertaken to the subhepatic space. There was no bile leak or bleeding. Rylan was applied for its hemostatic benefit and ultimately a 7 mm flat Tyler drain similarly applied to the subhepatic space. This was brought out through right-sided trocar site and secured the skin with nylon suture. Excess irrigation fluid was suctioned free. The trocars were removed under direct visualization showing no sign of bleeding. The infraumbilical fascial incision was reapproximated with interrupted 0 Vicryl suture. A 10 mL of 0.25% Marcaine with epinephrine was injected locally. The skin was closed with interrupted 2-0 Vicryl and Steri-Strips were applied. The drain a bit. This secured the skin with nylon suture and attached to bulb suction. She was ultimately extubated and transferred to the recovery room in good condition having suffered no complications. Sponge, needle, and counts were reported as correct x3. Jess Middleton MD /MODL /[id number] Electronically Signed By: JESS MIDDLETON MD 09/08/23 0828 PATIENT NAME: GABRIELA TOMAS OPERATIVE REPORT DATE OF : 73 REPORT #: [id number] PHYSICIAN: JESS MIDDLETON MD PCP: MOODY HAYES DO REPORT IS CONFIDENTIAL AND NOT TO BE RELEASED WITHOUT AUTHORIZATION [facility] [address] [place] [id number] Signed cc: MD Moody Carrasquillo DO Copies: KEVIN LEY MD, ARIAN DO ~ Electronically Signed By: JESS MIDDLETON MD 09/08/23 0828 PATIENT NAME: GABRIELA TOMAS OPERATIVE REPORT DATE OF : 73 REPORT #: [id number] PHYSICIAN: JESS MIDDLETON MD PCP: MOODY HAYES DO REPORT IS CONFIDENTIAL AND NOT TO BE RELEASED WITHOUT AUTHORIZATION
[2023-09-08 09:18] VITALS: BP 146/81
--- NOTE | 2023-09-08 09:18 | NUR ---
Full BODY ASSESSMENT COMPLETED. ADMINISTERED MORNING MEDICATIONS. PATIENT REPORTS PAIN WELL CONTROLLED 2/[address] MIDDLETON ROUNDED THIS MORNING AND PULLED KATH DRAIN. LAP SITES INTACT. NOTED BOWEL TONES IN ALL QUADRANTS. ENCOURAGED PATIENT TO GET UP AND AMBULATE IN HALLS. PLAN TO DISCHARGE AROUND 1030, FAMILY TRAVELING FROM [place].
--- NOTE | 2023-09-08 09:47 | NUR ---
PATIENT REQUESTED TO HAVE PERSCRIPTION FOR ZOFRAN WITH PLAN TO DISCHARGE TODAY. CALL TO DR. MIDDLETON TO REQUEST NAUSEA MEDICATION. REPORTED TO DR. MIDDLETON THAT PATIENT HAD REIEVED IV ZOFRAN THIS MORNING AT 0630. DR. MIDDLETON STATED "I WILL NOT WRITE FOR NAUSEA MEDICATION AT THIS TIME". NOTIFIED PATIENT AND ADDRESSED NEEDS TO INCREASE ACTIVITY, EAT DISINTEGRATOR FEEDER FOODS AND PUSH FLUIDS. REMINDED PATIENT THAT SHE RECIEVED MOM THIS MORNING THAT SHOULD HELP WITH A BM. PATIENT IS UP IN HALLWAYS WITH SIGNIFICANT OTHER APPEARS STEADY ON FEET.
[2023-09-08 10:11] VITALS: BP 127/91
--- NOTE | 2023-09-08 10:57 | NUR ---
PROVIDED PATIENT WITH DISCHARGE EDUCATION, ANSWERED QUESTIONS AND CONCERNS. WORK NOTE PROVIDED TO PATIENT AND SCRIPT FOR PAIN MEDICATION WITH . WHEELCHAIR RIDE OUT TO CAR, PATIENT TRANSFERED INTO CAR. STEADY ON FEET.
--- NOTE | 2023-09-10 09:23 | DS ---
[facility] [address], [place] [address] Signed ADMISSION DATE: 09/05/2023 DISCHARGE DATE: 09/08/2023 REASON FOR ADMISSION: This 48-year-old woman who lives in [place], [place] speaks Niuean well. 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 Her local provider is Dr. Moody Hayes. She presented to the emergency room, was evaluated by Dr. Panfilo Munson with complaints of right upper abdominal pain quite consistent with acute cholecystitis. A gallbladder ultrasound was performed showing gallstones and a borderline gallbladder wall thickening. Liver enzymes were elevated with ALT of 228, AST of 341, alkaline phosphatase 144 with a bilirubin of 0.6. She does have prior history of anti-reflux operation by laparoscopic approach in [place], [place] in 2019. She has had tubal ligation and hysterectomy and reoperation for cuff disruption. She is admitted for further evaluation and care. PERTINENT PHYSICAL EXAMINATION: VITAL SIGNS: At the time of admission showed temperature 97.2, pulse 62, blood pressure 173/79, O2 saturation 98% on room air trach. CHEST: Clear. HEART: Regular without murmur. ABDOMEN: Obese, but soft. There is tenderness in the right subcostal area but no sign of mass. She had no ascites. LABORATORY DATA: Her white count was 9.9, hematocrit 39.7, platelets 252,000. Chem profile as previously noted. HOSPITAL COURSE: She was fluid resuscitated given intravenous antibiotic Ancef and parenteral pain medication. Her lab studies the following morning were quite notable for elevated alkaline phosphatase to 135, ALT to 1075 and AST to 1042. She underwent laparoscopy with laparoscopic cholecystectomy and found on cholangiogram to have common duct stones. A laparoscopic transcystic duct common duct exploration and flexible choledochoscopy was undertaken on September 06, 2023. Clearance of the duct was assured, though there was some amorphous bilious mucoid material that was retained in the bile duct, but not considered hard stones. Completion cholangiogram confirmed good flow into the duodenum and the residual artifact but of no concern otherwise. A drain was left in place. She had progressive improvement thereafter. She showed no Electronically Signed By: JESS MIDDLETON MD 09/10/23 0923 PATIENT NAME: GABRIELA TOMAS DISCHARGE SUMMARY DATE OF : 73 REPORT #: [id number] PHYSICIAN: JESS MIDDLETON MD PCP: MOODY HAYES DO REPORT IS CONFIDENTIAL AND NOT TO BE RELEASED WITHOUT AUTHORIZATION [facility] [address] [place] [address] Signed evidence of bile leak. Liver enzymes immediately started to improve. By the day of discharge, she is ambulating well, tolerating a regular diet. Drain showed no evidence of bile leak and was removed and she is doing well. DISCHARGE MEDICATIONS: Will include: 1. Ibuprofen 600 mg p.o. q.6 hours as needed for pain, #60, refill 1. 2. Percocet 7.5/325 1 to 2 p.o. q.6 hours as needed for pain, #10. 3. Tylenol 500 mg two tablets p.o. q.6 hours as needed for pain, #60. 4. She will resume her usual medications which include cetirizine 10 mg p.o. as needed for allergies, omega-3 fatty acid one p.o. daily. 5. Turmeric 500 mg daily as needed for various symptoms. 6. Vitamin C 500 mg p.o. daily. 7. Olmesartan 5 mg tablets two tablets p.o. daily for hypertension. 8. Oxybutynin 5 mg as needed for bladder control issues. 9. Estradiol 0.01% cream vaginally twice weekly. 10. Albuterol sulfate two puffs q.4 hours as needed for wheezing. 11. Magnesium oxide as needed for constipation. 12. Vitamin K tablet daily. 13. Zinc gluconate 50 mg p.o. daily. 14. Lactobacillus probiotic one p.o. daily. DISCHARGE DIAGNOSES: 1. Acute calculous cholecystitis with common duct obstruction, status post laparoscopic cholecystectomy and laparoscopic transcystic duct clearance of bile duct and flexible choledochoscopy with extraction of stone material and completion cholangiogram. 2. History of hysterectomy. 3. History of laparoscopic anti-reflux operation in 2019. 4. Obesity. 5. Hypertension. FOLLOWUP PLAN: She will call my office on Sunday to set up an appointment for followup in one month or so. The patient wishes to have four weeks of convalescence and a note will be written to that effect. Jess Middleton MD Electronically Signed By: JESS MIDDLETON MD 09/10/23 0923 PATIENT NAME: GABRIELA TOMAS DISCHARGE SUMMARY DATE OF : 73 REPORT #: [id number] PHYSICIAN: JESS MIDDLETON MD PCP: MOODY HAYES DO REPORT IS CONFIDENTIAL AND NOT TO BE RELEASED WITHOUT AUTHORIZATION [facility] [address] [place], [place] [address], [place] [address] Signed /[facility] /[id number] cc: MD Moody Carrasquillo DO Copies: PANFILO MUNSON MD, ARIAN DO ~ Electronically Signed By: JESS MIDDLETON MD 09/10/23 0923 PATIENT NAME: POP TOMASRA DISCHARGE SUMMARY DATE OF : 73 REPORT #: [id number] PHYSICIAN: JESS MIDDLETON MD PCP: MOODY HAYES DO REPORT IS CONFIDENTIAL AND NOT TO BE RELEASED WITHOUT AUTHORIZATION
--- NOTE | 2023-09-12 15:59 | PATH ---
[facility] [address] [place], [place] [address] Signed SPECIMEN(S): A GALLBLADDER AND STONES SPECIMEN SOURCE: A. 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 - Incidental pericystic lymph node. JVR:andrea MICROSCOPIC EXAMINATION: Histologic sections of all submitted blocks are examined by light microscopy. These findings, together with the gross examination, support the pathologic diagnosis. GROSS DESCRIPTION: The specimen, labeled and designated "Renato Hurley, gallbladder and stones," is received in formalin and consists of Specimen: Previously opened gallbladder. Dimensions: 10.0 x 4.0 x 2.5 cm. Serosa: Yellow-guevara and slightly roughened. Cystic Duct: Obstructed by calculi, margin inked black and shaved. Calculi: Multiple yellow-guevara to brown multifaceted/irregularly shaped calculi (0.3-2.0 cm in greatest dimension, and 6.0 x 4.0 x 2.0 cm in aggregate). Mucosa: Brown-guevara and roughened/attenuated. Wall thickness: 0.4-1.0 cm. Lymph node: One yellow-pink possible pericystic lymph node (0.7 x 0.5 x 0.4 cm). The tissue is submitted entirely in cassette (A2). Additional: None. Computer Technology Instructor sections are submitted Cassette Summary: (A1) gallbladder wall and cystic duct margin (A2) possible pericystic lymph node, entirely VB (under the direct supervision of a pathologist) The Gross Description was prepared using a voice recognition system. The report was reviewed for accuracy; however, sound-alike word errors, addition and/or PATIENT NAME: GABRIELA TOMAS PATHOLOGY DATE OF : 73 REPORT #: [id number] PHYSICIAN: DAISHA TRAMMELL PCP: THIAGO HAYES DO REPORT IS CONFIDENTIAL AND NOT TO BE RELEASED WITHOUT AUTHORIZATION [facility] [address] [facility] [place], [place] [address] Signed deletions may occur. If there is any question about this report, please contact Client Services. PERFORMING LABORATORY: Technical component was performed by [facility], [address] [place] [address] (CLIA# [id number]). Professional interpretation was performed by [facility], [address] [place] [id number] (CLIA#: [id number]). Diagnostician: Jesús Mosqueda MD Pathologist Electronically Signed 09/12/2023 Copies: ~ PATIENT NAME: GABRIELA TOMAS PATHOLOGY DATE OF : 73 REPORT #: [id number] PHYSICIAN: DAISHA TRAMMELL PCP: THIAGO HAYES DO REPORT IS CONFIDENTIAL AND NOT TO BE RELEASED WITHOUT AUTHORIZATION
== END 2023-09-08 10:35 | disposition home or self-care (01) | DRG 413 ==
LOC: ED 15:57 → MS 15:58
PROVIDERS: Emergency Medicine; ADMIT Surgery; ATTEND Surgery
PROC: 0FJB4ZZ Inspection of Hepatobiliary Duct, Percutaneous Endoscopic Approach (ICD-10-PCS; principal; 2023-09-06 12:30)
PROC: 0FT44ZZ Resection of Gallbladder, Percutaneous Endoscopic Approach (ICD-10-PCS; 2023-09-06 12:30)
DX: K80.63 Calculus of gallbladder and bile duct with acute cholecystitis with obstruction (principal); Z98.51 Tubal ligation status; Z90.710 Acquired absence of both cervix and uterus; E66.9 Obesity, unspecified; I10 Essential (primary) hypertension; R73.03 Prediabetes; Z98.890 Other specified postprocedural states; Z68.29 Body mass index [BMI] 29.0-29.9, adult; Z79.899 Other long term (current) drug therapy; K59.00 Constipation, unspecified
CPT/HCPCS: 00790; 36415; 74300; 76705; 80053; 81003; 83690; 85025; 96372; 96374; 96375; 99285-25; A9270; G0378; J0131; J0690; J1100; J1644; J1885; J2405; J2704; J3490; J7121; Q9967

== ENCOUNTER 2023-12-06 12:35 | Day surgery (SDC) | payer BC, OTHER ==
[~2023-12-06] VITALS: Ht 157.5 cm; Wt 72.7 kg
[~2023-12-06 12:35] MED LIST changes: +ACETAMINOPHEN500 MG PO; +ESTRADIOL42.5 GM PV; +FLUTICASONE PRO16 GM NAS; +IBLOOD GLUCOSE TEST STRIP 1 EA TEST VI PRN; +IBUPROFEN600 MG PO; +LACTATED RINGER'S 1,000 ML IV SCH; +LIDOCAINE HCL 1% 5 ML SDV INJ ONE; +LIDOCAINE HCL 4% 50 ML BTL TOP SCH; +MAGOX 400400 MG PO; +MIDAZOLAM HCL 5 MG/5 ML VIAL IV PRN; +OXYBUTYNIN CHLOR5 M1 PO; +OXYCODON-ACETA1 EAC2 PO; +PROBIOTIC1 EAC1 PO; +VENTOLIN HFA18 GM INH; +VITAMIN K240 MCG PO; +ZINC50 MG PO; +fentaNYL citrate 100 MCG/2 ML VIAL IV PRN
[2023-12-06 13:16] VITALS: BP 145/86
[2023-12-06] MEDS ORDERED: MIDAZOLAM HCL 5 MG/5 ML VIAL ONE (13:19)
[2023-12-06] MEDS ORDERED: fentaNYL citrate 100 MCG/2 ML VIAL ONE (13:19)
--- NOTE | 2023-12-06 15:03 | NUR ---
12/06/23 1503 Marcia Pena 1422-PT ARRIVED TO PACU ON 3L/NC, UNRESPONSIVE TO TACTILE STIMULI. SATS ABOVE 95%. RR EVEN AND UNLABORED. 1427-PT PASSING GAS. ABD SOFT.
[2023-12-06 15:10] VITALS: BP 139/93
--- NOTE | 2023-12-07 19:48 | OR ---
[facility] [address] [place], [place] [address] Signed DATE OF OPERATION: 12/06/2023 SURGEON: Jess Middleton MD PREOPERATIVE DIAGNOSES: 1. History of Francesca fundoplication for Cornelius epithelium (2019 in [place], [place], Dr. Teague). 2. Colon screening. POSTOPERATIVE DIAGNOSES: 1. Normal upper endoscopy, good flap valve. 2. Normal colon. PROCEDURES: 1. Esophagogastroduodenoscopy with biopsy. 2. Total colonoscopy to cecum. ANESTHESIA: Intravenous sedation; fentanyl 150 mcg and Versed 7 mg total. INDICATIONS FOR THE PROCEDURE: This 48-year-old woman underwent laparoscopic cholecystectomy and common duct exploration on September 06, 2023, for acute calculous cholecystitis. She is now doing quite well. She does have history of Francesca fundoplication performed in 2019 in [place], [place] by Dr. Teague. 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 She inquires regarding surveillance endoscopy. The last upper endoscopy was more than five years ago. She has no symptoms of dysphagia, hematemesis, or other symptoms currently. Additionally, the patient is of age for consideration of screening colonoscopy. She denies prior colonoscopy and has no complaints of bleeding, diarrhea, constipation, nor family history of colon cancer. Understanding the risk of bleeding, infection, perforation related to upper endoscopy and colonoscopy, both procedures are offered at this time. She understands these risks and wished to proceed. FINDINGS: Upper endoscopy showed a good flap valve. The esophagus itself had no obvious Cornelius epithelium, though there was one small area that may have had some evidence thereof. Stomach and duodenum were normal. Electronically Signed By: JESS MIDDLETON MD 12/07/231947 PATIENT NAME: GABRIELA TOMAS OPERATIVE REPORT DATE OF : 73 REPORT #: [id number] PHYSICIAN: JESS MIDDLETON MD PCP: THIAGO HAYES DO REPORT IS CONFIDENTIAL AND NOT TO BE RELEASED WITHOUT AUTHORIZATION [facility] [address], [place] [address] Signed The colon was well prepped and there was no evidence of polyps, colitis, or other abnormality. DESCRIPTION OF PROCEDURE: EGD: The patient was brought to the endoscopy suite and placed in lateral decubitus position after undergoing lidocaine hypopharyngeal anesthesia. She was given intravenous sedation to the point of slurred speech and nystagmus with full cardiopulmonary monitoring. A bite block was placed. An Olympus video upper endoscope was passed into the hypopharynx. The vocal cords were normal. Scope was easily passed into the esophagus throughout its length and appeared normal on first inspection. Passed to the stomach allowed for dilation of stomach and evaluation of rugal folds, which were normal. There was no untoward bile within the stomach. The pylorus was normal, scope was passed through into the duodenum, which was normal. Biopsies were taken of the duodenum to assess for celiac disease. The scope was withdrawn. Biopsy was then taken of the antrum for both JUAN MANUEL and pathologic testing. Retroflexed view was undertaken showing a very good flap valve from reconstruction. There was a single suture from the endoscopic procedure of no clinical importance. The scope was straightened, withdrawn and narrow band imaging was employed, not showing any specific area of Cornelius epithelium so far as could be told. Biopsies were taken nevertheless including one area of the Z-line extended more proximally than usual. Careful withdrawal allowed for biopsy of the midesophagus, it appeared normal. The scope was withdrawn and removed after evaluation of vocal cords showing them to be normal. COLONOSCOPY: Plans were then made for colonoscopy. Additional sedation was given. Digital rectal examination performed, which was normal. An Olympus video colonoscope was passed into the rectum and manipulated throughout the colon ultimately intubating the cecum itself. The ileocecal valve and appendiceal orifice were normal. Scope was withdrawn. Examination throughout showed no sign of polyps, colitis, or large diverticula. There were few shallow diverticula noted, one in the cecum and a few in the sigmoid, but of no clinical importance. Retroflexed view was normal as well. The scope was removed, and the patient taken to the recovery room in good condition. CONCLUDING DIAGNOSES: 1. No evidence of Cornelius epithelium grossly, biopsies pending. 2. Normal colon to cecum other than a few scattered diverticula. PLAN: Recommend repeat colonoscopy in 10 years. If Cornelius epithelium is affirmed on pathologic evaluation, consideration for repeat upper endoscopy in 5 years. She will return to the ongoing care of her primary provider, Thiago Hayes. Electronically Signed By: JESS MIDDLETON MD 12/07/231947 PATIENT NAME: GABRIELA TOMAS OPERATIVE REPORT DATE OF : 73 REPORT #: [id number] PHYSICIAN: JESS MIDDLETON MD PCP: THIAGO HAYES DO REPORT IS CONFIDENTIAL AND NOT TO BE RELEASED WITHOUT AUTHORIZATION [address] [address] Signed MD LOLIS Rodriguez/MODL /[id number] cc: Thiago Hayes DO Copies: THIAGO HAYES DO ~ Electronically Signed By: JESS MIDDLETON MD 12/07/23 1948 PATIENT NAME: SANDRA SANCHEZGABRIELA OPERATIVE REPORT DATE OF : 73 REPORT #: [id number] PHYSICIAN: JESS MIDDLETON MD PCP: THIAGO HAYES DO REPORT IS CONFIDENTIAL AND NOT TO BE RELEASED WITHOUT AUTHORIZATION
--- NOTE | 2023-12-12 16:29 | PATH ---
[facility] [address] [place], [place] [address] Signed SPECIMEN(S): A DUODENAL BIOPSY SPECIMEN(S): B ANTRUM BIOPSY SPECIMEN(S): C DISTAL ESOPHAGEAL BIOPSY SPECIMEN(S): D MID ESOPHAGEAL BIOPSY SPECIMEN SOURCE: A. DUODENAL BIOPSY B. ANTRUM BIOPSY C. DISTAL ESOPHAGEAL BIOPSY D. MID ESOPHAGEAL BIOPSY CLINICAL HISTORY: History of Cornelius's esophagus/screening colonoscopy FINAL PATHOLOGIC DIAGNOSIS: A. Duodenum, biopsy: - Duodenal mucosa with preserved villous architecture and increased intraepithelial lymphocytes, see comment B. Stomach, antrum, biopsy: - Gastric antral mucosa with no significant pathologic changes - Negative for Helicobacter pylori with HE stains C. Esophagus, distal, biopsy: - Esophageal squamous mucosa with no significant pathologic changes D. Esophagus, mid, biopsy: - Esophageal squamous mucosa with no significant pathologic changes COMMENT: For part A, these findings are nonspecific and have been described in association with a variety of conditions including mild celiac disease, other food sensitivities, certain infections (includingHelicobactergastritis), certain medications (including NSAIDs), peptic injury, inflammatory bowel disease, immunodeficiencies, and systemic autoimmune disorders. In many cases, no specific cause is identified. Clinical correlation is needed. P MICROSCOPIC EXAMINATION: Histologic sections of all submitted blocks are examined by light microscopy. These findings, together with the gross examination, support the pathologic diagnosis. PATIENT NAME: GABRIELA TOMAS PATHOLOGY DATE OF : 73 REPORT #: [id number] PHYSICIAN: [facility] PCP: THIAGO HAYES DO REPORT IS CONFIDENTIAL AND NOT TO BE RELEASED WITHOUT AUTHORIZATION [facility] [address] [place], [place] [address] Signed GROSS DESCRIPTION: A. The specimen, labeled and designated "Gross Hurley, duodenal biopsy," is received in formalin and consists of three guevara soft tissue fragments, ranging from 0.2-0.4 cm. Entirely submitted in (A1). B. The specimen, labeled and designated "Gross Hurley, antrum biopsy," is received in formalin and consists of one guevara soft tissue fragment, 0.4 cm. Entirely submitted in (B1). C. The specimen, labeled and designated "Gross Hurley, distal esophageal biopsy," is received in formalin and consists of six guevara soft tissue fragments, ranging from 0.2-0.4 cm. Entirely submitted in (C1). D. The specimen, labeled and designated "Gross Hurley, mid esophageal biopsy," is received in formalin and consists of two guevara soft tissue fragments, ranging from 0.2-0.3 cm. Entirely submitted in (D1). VB (under the direct supervision of a pathologist) The Gross Description was prepared using a voice recognition system. The report was reviewed for accuracy; however, sound-alike word errors, addition and/or deletions may occur. If there is any question about this report, please contact Client Services. ADDITIONAL NOTES: Immunohistochemical and/or in situ hybridization studies if performed in this case included appropriate positive controls that reacted as expected. This test was developed and its performance characteristics determined by [facility]. It has not been cleared or approved by the U.S. Food and Drug Administration. The FDA has determined that such clearance or approval is not necessary. This test is used for clinical purposes. It should not be regarded as investigational or for research. [facility] is certified under the Clinical Laboratory Improvement Amendments of 1988 (CLIA) as qualified to perform high complexity clinical laboratory testing. PERFORMING LABORATORY: Technical component was performed by [facility], [address] [place] [address] (CLIA# [id number]). Professional interpretation was performed by [facility] - [facility] [address] [facility] [id number] PATIENT NAME: GABRIELA TOMAS PATHOLOGY DATE OF : 73 REPORT #: [id number] PHYSICIAN: VALERIA TRAMMELL PCP: THIAGO HAYES DO REPORT IS CONFIDENTIAL AND NOT TO BE RELEASED WITHOUT AUTHORIZATION [facility] [address] [facility] [place] [address] Signed Diagnostician: Ti Page MD Pathologist Electronically Signed 12/12/2023 Copies: ~ PATIENT NAME: GABRIELA TOMAS PATHOLOGY DATE OF : 73 REPORT #: [id number] PHYSICIAN: VALERIA TRAMMELL PCP: THIAGO HAYES DO REPORT IS CONFIDENTIAL AND NOT TO BE RELEASED WITHOUT AUTHORIZATION
== END 2023-12-06 15:20 | disposition home or self-care (01) ==
LOC: OPS 12:35 → DS 12:38 → OPS 14:00 → DS 14:00 → OPS 15:20
PROVIDERS: ATTEND Surgery
PROC: 0DB68ZX Excision of Stomach, Via Natural or Artificial Opening Endoscopic, Diagnostic (ICD-10-PCS; 2023-12-06)
PROC: 0DB58ZX Excision of Esophagus, Via Natural or Artificial Opening Endoscopic, Diagnostic (ICD-10-PCS; 2023-12-06)
PROC: 0DJD8ZZ Inspection of Lower Intestinal Tract, Via Natural or Artificial Opening Endoscopic (ICD-10-PCS; principal; 2023-12-06 14:00)
PROC: 0DB98ZX Excision of Duodenum, Via Natural or Artificial Opening Endoscopic, Diagnostic (ICD-10-PCS; 2023-12-06 14:00)
DX: Z12.11 Encounter for screening for malignant neoplasm of colon (principal); K57.30 Diverticulosis of large intestine without perforation or abscess without bleeding; K63.89 Other specified diseases of intestine; Z98.890 Other specified postprocedural states; K80.12 Calculus of gallbladder with acute and chronic cholecystitis without obstruction; I10 Essential (primary) hypertension; K21.9 Gastro-esophageal reflux disease without esophagitis; Z90.711 Acquired absence of uterus with remaining cervical stump; Z79.899 Other long term (current) drug therapy
CPT/HCPCS: 43239; G0121; 84703; 99153; G0500; J2250; J3010; J7121

== ENCOUNTER 2023-12-30 09:35 | Emergency (ER) | payer BC ==
[~2023-12-30] VITALS: Ht 157.5 cm; Wt 73.1 kg
[~2023-12-30 09:35] MED LIST changes: -IBLOOD GLUCOSE TEST STRIP 1 EA TEST VI PRN; -LACTATED RINGER'S 1,000 ML IV SCH; -LIDOCAINE HCL 1% 5 ML SDV INJ ONE; -LIDOCAINE HCL 4% 50 ML BTL TOP SCH; -MIDAZOLAM HCL 5 MG/5 ML VIAL IV PRN; -fentaNYL citrate 100 MCG/2 ML VIAL IV PRN
[2023-12-30] MEDS ORDERED: CIPROFLOXACIN500 MG PO (09:51)
[2023-12-30 09:54] LABS: BILIRUBIN, URINE NEGATIVE (negative); BLOOD/HGB, URINE TRACE-L (Negative); KETONE, URINE NEGATIVE (Negative); LEUK ESTERASE, URINE NEGATIVE (negative); NITRITE, URINE NEGATIVE (negative)
[2023-12-30 10:08] LABS: CRYSTALS, URINE NONE SEEN (0-1+); EPITHELIAL CELLS, URINE SQUAMOUS 2+ /lpf (0-1+); RED BLOOD CELLS, URINE 0-1 /hpf (0-5)
[2023-12-30 10:09] LABS: BACTERIA, URINE RARE /hpf (negative); CASTS, URINE NONE SEEN \\lpf; COLLECTION TYPE, URINE CLEAN CATCH; REFLEX CULTURE, URINE No (No)
[2023-12-30 10:39] VITALS: BP 160/119
== END 2023-12-30 10:39 | disposition home or self-care (01) ==
LOC: ED 09:35
PROVIDERS: Emergency Medicine
DX: N39.0 Urinary tract infection, site not specified (principal); I10 Essential (primary) hypertension; Z79.899 Other long term (current) drug therapy
CPT/HCPCS: 81001; 99283